=== PATIENT | male | born 1995 | race Caucasian/White ===

== ENCOUNTER 2021-10-10 20:30 | Inpatient (IN) | payer SELFPAY ==
[2021-10-10] MEDS ORDERED: Sodium Chloride 0.9% 10 ML Syringe FLUSH PRN (21:00)
[2021-10-10] MEDS ORDERED: Iopamidol 755 Mg/ML 75 ML Bottle IVPUSH ONE (21:40)
[2021-10-10] MEDS ORDERED: Sodium Chloride 0.9% 50 ML IV SCH (21:45)
--- NOTE | 2021-10-10 21:54 | EDM.PDOC ---
ED HPI GENERAL MEDICAL PROBLEM - General Chief Complaint: General Stated Complaint: ABD PAIN WITH LEFT SIDE BACK PAIN Time Seen by Provider: 10/10/21 21:34 Source of Information: Reports: Patient History Limitations: Reports: No Limitations - History of Present Illness INITIAL COMMENTS - FREE TEXT/NARRATIVE: Patient presents with abdominal pain. One week ago he started with fever, body aches, loss of taste/smell, cough, diarrhea, abdominal pain. Most symptoms are still lingering but the abdominal pain has gotten worse the last 3 days. It is in the central upper abdomen and constant at 3-4/10. His fever has been up to 103 and he uses Tylenol/Ibuprofen to control it. He isn't eating very well but is drinking lots of water. Middle Abdomen Pain Score (Numeric/FACES): 4 - Related Data Allergies Allergy/AdvReac Type Severity Reaction Status Date / Time seasonal Allergy Cannot Uncoded 10/10/21 21:25 Remember Home Meds: Home Meds Acetaminophen [Tylenol] 650 mg PO Q4HR PRN 10/10/21 [History] Ibuprofen 400 mg PO Q6H PRN 10/10/21 [History] ED ROS GENERAL - Review of Systems Review Of Systems: See Below Constitutional: Reports: Fever HEENT: Reports: Other (mild headache). Denies: Ear Pain, Throat Pain, Vision Change Respiratory: Reports: Cough (mild). Denies: Shortness of Breath Cardiovascular: Denies: Chest Pain, Lightheadedness, Syncope GI/Abdominal: Reports: Abdominal Pain, Diarrhea. Denies: Nausea, Vomiting : Denies: Dysuria, Flank Pain Musculoskeletal: Reports: Other (general aches) Skin: Denies: Cyanosis, Jaundice, Mottled, Pallor, Diaphoresis Neurological: Denies: Confusion, Dizziness, Seizure, Syncope, Trouble Speaking, Difficulty Walking Psychiatric: Denies: Agitation, Anxiety, Confusion ED EXAM, GENERAL - Physical Exam Exam: See Below Exam Limited By: No Limitations General Appearance: Alert, WD/WN, No Apparent Distress Eye Exam: Bilateral Eye: EOMI, Normal Inspection, PERRL Ears: Normal External Exam, Hearing Grossly Normal Nose: Normal Inspection, No Blood Throat/Mouth: Normal Inspection, Normal Lips, Normal Voice, No Airway Compromise Head: Atraumatic, Normocephalic Neck: Normal Inspection, Full Range of Motion Respiratory/Chest: No Respiratory Distress, Lungs Clear, Normal Breath Sounds, No Accessory Muscle Use Cardiovascular: Normal Peripheral Pulses, Regular Rate, Rhythm, No Edema, No Murmur Peripheral Pulses: 2+: Radial (L), Radial (R), Posterior Tibial (L), Posterior Tibial (R) GI/Abdominal: Normal Bowel Sounds, Soft, No Organomegaly, No Distention, No Abnormal Bruit, No Mass, Tender (mild, non-localized central, LUQ, RLQ). No: Guarding Back Exam: Normal Inspection, Full Range of Motion. No: CVA Tenderness (L), CVA Tenderness (R) Extremities: Normal Inspection, Normal Range of Motion, Non-Tender Neurological: Alert, Oriented, Normal Cognition, No Motor/Sensory Deficits Psychiatric: Normal Affect, Normal Mood Skin Exam: Warm, Dry, Intact, Normal Color, No Rash Course - Vital Signs Last Recorded V/S: Last Vital Signs Temp 96.2 F L 10/10/21 21:00 Pulse 118 H 10/10/21 21:00 Resp 24 H 10/10/21 21:00 BP 139/89 10/10/21 21:00 Pulse Ox 92 L 10/10/21 21:00 - Orders/Labs/Meds Orders: Active Orders 24 hr Category Date Time Status Peripheral IV Care [RC] . DIRECTED Care 10/10/21 21:00 Active Abdomen Pelvis w Cont [CT] Stat Exams 10/10/21 21:02 Ordered Sodium Chloride 0.9% [Normal Saline] 50 ml Med 10/10/21 21:45 Active IV ASDIRECTED Sodium Chloride 0.9% [Saline Flush] Med 10/10/21 21:00 Active 10 ml FLUSH Q8HR PRN Peripheral IV Insertion Adult [OM.PC] Routine Oth 10/10/21 21:00 Ordered Medication Orders Sodium Chloride (Normal Saline) 50 mls @ 200 mls/min IV ASDIRECTED SYDNI Last Admin: 10/10/21 22:03 Dose: 200 mls/min Documented by: JUAN ALBERTO Sodium Chloride (Sodium Chloride 0.9% 10 Ml Syringe) 10 ml FLUSH Q8HR PRN PRN Reason: keep vein open Last Admin: 10/10/21 21:10 Dose: 10 ml Documented by: MAGGY Labs: Laboratory Tests 10/10/21 10/10/21 10/10/21 Range/Units 21:10 21:10 21:16 WBC 7.21 (5.00-10.00) 10^3/uL RBC 5.88 (4.50-6.00) 10^6/uL Hgb 17.7 H (13.0-17.0) g/dL Hct 49.5 (40.0-52.0) % MCV 84.2 (82.0-92.0) fL MCH 30.1 (27.0-31.0) pg MCHC 35.8 (32.0-36.0) g/dL RDW 11.7 (11.5-14.5) % Plt Count 154 (150-400) 10^3/uL MPV 9.8 (7.4-10.4) fL Immature Gran % (Auto) 1.1 (0.0-5.0) % Neut % (Auto) 69.2 (50.0-70.0) % Lymph % (Auto) 24.7 (20.0-40.0) % [place] % (Auto) 4.9 (2.0-8.0) % Eos % (Auto) 0.0 L (1.0-3.0) % Baso % (Auto) 0.1 (0.0-1.0) % Neut # (Auto) 4.99 (2.50-7.00) 10^3/uL Lymph # (Auto) 1.78 (1.00-4.00) 10^3/uL [place] # (Auto) 0.35 (0.10-0.80) 10^3/uL Eos # (Auto) 0.00 L (0.10-0.30) 10^3/uL Baso # (Auto) 0.01 (0.00-0.10) 10^3/uL Immature Gran # (Auto) 0.08 (0.00-0.50) 10^3/uL Sodium 137 (136-145) mmol/L Potassium 3.6 (3.5-5.1) mmol/L Chloride 99 (98-107) mmol/L Carbon Dioxide 23.8 (21.0-32.0) mmol/L Anion Gap 17.8 H (5-15) mmol/L BUN 17 (7-18) mg/dL Creatinine 0.99 (0.51-1.17) mg/dL Est Cr Clr Drug Dosing TNP Estimated GFR (MDRD) > 60 mL/min Glucose 115 (70-140) mg/dL Calcium 8.1 L (8.7-10.3) mg/dL Total Bilirubin 0.9 (0.2-1.0) mg/dL AST 49 H (15-37) U/L ALT 77 H (14-63) U/L Alkaline Phosphatase 59 (46-116) U/L C-Reactive Protein 5.0 H (0.0-0.9) mg/dL Total Protein 7.2 (6.4-8.2) g/dL Albumin 3.36 L (3.40-5.00) g/dL Lipase 118 (73-393) U/L Specimen Type Urinvoid Urine Color Dark yellow H (YELLOW) Urine Appearance Clear (CLEAR) Urine pH 6.0 (5.0-9.0) Ur Specific [place] 1.025 (1.005-1.030) Urine Protein 100 H (NEGATIVE) mg/dL Urine Glucose (UA) Negative (NEGATIVE) mg/dL Urine Ketones Negative (NEGATIVE) mg/dL Urine Occult Blood Trace-intact H (NEGATIVE) Urine Nitrite Negative (NEGATIVE) Urine Bilirubin Negative (NEGATIVE) Urine Urobilinogen 0.2 (0.2-1.0) E.U./dL Ur Leukocyte Esterase Negative (NEGATIVE) Urine RBC 0-5 (0-5) /HPF Urine WBC 0-5 (0-5) /HPF Ur Epithelial Cells Rare /LPF Amorphous Sediment Rare (0/HPF) /HPF Urine Bacteria Not seen (NONE TO FEW) /HPF Urine Mucus Moderate H (NEGATIVE) /LPF Meds: Medications Generic Name Dose Route Start Last Admin Trade Name Freq PRN Reason Stop Dose Admin Sodium Chloride 50 mls @ 200 mls/min 10/10/21 21:45 10/10/21 22:03 Normal Saline IV 200 mls/min ASDIRECTED SYDNI Administration Sodium Chloride 10 ml 10/10/21 21:00 10/10/21 21:10 Sodium Chloride 0.9% 10 Ml Syringe FLUSH 10 ml Q8HR PRN Administration keep vein open Discontinued Medications Generic Name Dose Route Start Last Admin Trade Name Freq PRN Reason Stop Dose Admin Iopamidol 75 ml 10/10/21 21:40 10/10/21 22:03 Iopamidol 755 Mg/Ml 75 Ml Bottle IVPUSH 10/10/21 21:41 75 ml ONETIME ONE Administration - Re-Assessments/Exams Free Text/Narrative Re-Assessment/Exam: 10/10/21 22:59 CBC good. CRP 5.0, AST and ALT elevated. Lipase 118. UA shows proteinuria but otherwise okay. CT shows patchy bilat viral pneumonia, enlarged fatty infiltrated liver, enlarged spleen at 14 cm. Discuss[address] case with Dr. Stovall who wants to admit with IV fluids, Lovenox, Dexa methasone. He will reassess in the morning and consider other treatment options. Discussed findings and treatment plan with patient who agrees. Pain is 12/11 now. Stable at discharge from ER. Departure - Departure Time of Disposition: 22:58 Disposition: Admitted As Inpatient 65 Condition: Good Clinical Impression: Splenomegaly, Fatty liver, COVID-19, Viral pneumonia Abdominal pain Qualifiers: Abdominal location: epigastric Qualified Code(s): R10.13 - Epigastric pain - Discharge Information Referrals: Ashlie Angulo MD [Physician] - Forms: ED Department Discharge Sepsis Event Note (ED) - Focused Exam Vital Signs: Vital Signs Temp Pulse Resp BP Pulse Ox 10/10/21 21:00 96.2 F L 118 H 24 H 139/89 92 L - My Orders Last 24 Hours: My Active Orders 10/10/21 21:00 Peripheral IV Care [RC] . DIRECTED Sodium Chloride 0.9% [Saline Flush] 10 ml FLUSH Q8HR PRN Peripheral IV Insertion Adult [OM.PC] Routine 10/10/21 21:02 Abdomen Pelvis w Cont [CT] Stat 10/10/21 21:45 Sodium Chloride 0.9% [Normal Saline] 50 ml IV ASDIRECTED - Assessment/Plan Last 24 Hours: My Active Orders 10/10/21 21:00 Peripheral IV Care [RC] . DIRECTED Sodium Chloride 0.9% [Saline Flush] 10 ml FLUSH Q8HR PRN Peripheral IV Insertion Adult [OM.PC] Routine 10/10/21 21:02 Abdomen Pelvis w Cont [CT] Stat 10/10/21 21:45 Sodium Chloride 0.9% [Normal Saline] 50 ml IV ASDIRECTED
[2021-10-10 21:55] LABS: ANION GAP 17.8 mmol/L (5-15); CHLORIDE,CL 99 mmol/L (98-107); SODIUM,NA 137 mmol/L (136-145)
[2021-10-10] MEDS ORDERED: Sodium Chloride 0.9% 1,000 ML IV ONE (22:42)
[2021-10-10] MEDS ORDERED: Dexamethasone 4 MG/ML SDV IVPUSH ONE (22:42)
[2021-10-10] MEDS ORDERED: Enoxaparin 100 MG/1 ML Syringe SUBCUT ONE (22:43)
[2021-10-11] MEDS: Acetaminophen 325 MG Tab PO PRN ×3 (06:29→20:55)
--- NOTE | 2021-10-11 08:20 | CT ---
[id number] CT/CT Abdomen Pelvis W IV EXAM: CT Abdomen Pelvis W IV INDICATION: ABDOMINAL PAIN RADIATING TO BACK COMPARISON: None. DISCUSSION: Partially imaged bilateral gynecomastia. In the lung bases there are multifocal infiltrates most consistent with pneumonia. Hepatic steatosis. Mild to moderate splenomegaly. There are subtle areas of hypoenhancement scattered throughout the left kidney which are nonspecific but could be seen in the context of pyelonephritis, correlate with urinalysis and clinical findings. The gallbladder, pancreas, adrenal glands, right kidney, small bowel, large bowel, and the appendix are normal in appearance. No adenopathy, free air free fluid. Scattered degenerative changes in the spine and hips. The osseous structures are otherwise unremarkable. IMPRESSION: 1. Multifocal airspace opacities in the lung bases most consistent with infection. 2. Subtle hypoenhancement in the left kidney raising the possibility of pyelonephritis. Correlation with urinalysis and clinical signs and symptoms is suggested. 3. Hepatic steatosis and mild to moderate splenomegaly. Dick Barton MD 10/11/21 0819 Thank you for allowing us to participate in the care of your patient.
--- NOTE | 2021-10-11 10:51 | PCM.HP.2 ---
H&P History of Present Illness - General Date of Service: 10/11/21 Admit Problem/Dx: Admission Diagnosis/Problem Admission Diagnosis/Problem Splenomegaly Middle Abdomen Pain Score (Numeric/FACES): 2 - Related Data Allergies/Adverse Reactions: Allergies Allergy/AdvReac Type Severity Reaction Status Date / Time seasonal Allergy Cannot Uncoded 10/10/21 21:25 Remember Home Medications: Home Meds Acetaminophen [Tylenol] 650 mg PO Q4HR PRN 10/10/21 [History] Ibuprofen 400 mg PO Q6H PRN 10/10/21 [History] Past Medical History Other HEENT History: astigmatism. myopia Cardiovascular History: Reports: High Cholesterol Other Cardiovascular History: hypertriglyceridemia Respiratory History: Reports: Other (See Below) Other Respiratory History: COVID + Psychiatric History: Reports: None Endocrine/Metabolic History: Reports: Obesity/BMI 30+ - Infectious Disease History Infectious Disease History: Reports: Chicken Pox, Novel Coronavirus - Past Surgical History HEENT Surgical History: Reports: Tonsillectomy Social & Family History - Tobacco Use Tobacco Use Status *Q: Never Tobacco User Second Hand Smoke Exposure: No - Caffeine Use Caffeine Use: Reports: Coffee, Soda - Recreational Drug Use Recreational Drug Use: No H&P Review of Systems - Review of Systems: Review Of Systems: See Below General: Reports: Fever, Chills, Fatigue, Decreased Appetite HEENT: Reports: No Symptoms Pulmonary: Reports: Shortness of Breath, Cough. Denies: Wheezing Cardiovascular: Reports: Dyspnea on Exertion Gastrointestinal: Reports: Abdominal Pain, Diarrhea, Decreased Appetite. Denies: Nausea, Vomiting Genitourinary: Reports: No Symptoms Musculoskeletal: Reports: Other (generalized body aches) Skin: Reports: No Symptoms Psychiatric: Reports: No Symptoms Neurological: Reports: No Symptoms Hematologic/Lymphatic: Reports: No Symptoms Immunologic: Reports: No Symptoms Exam - Exam Exam: See Below - Vital Signs Vital Signs: Last Vital Signs Temp 98.4 F 10/11/21 10:43 Pulse 107 H 10/11/21 10:43 Resp 16 10/11/21 10:43 BP 140/80 10/11/21 10:43 Pulse Ox 93 L 10/11/21 10:43 Weight: 300 lb - Exam Quality Assessment: Supplemental Oxygen (2L), DVT Prophylaxis (lovenox BID) HEENT: Conjunctiva Clear, Mucosa Moist & [place] Neck: Supple, Trachea Midline Lungs: Decreased Breath Sounds. No: Crackles Cardiovascular: Regular Rhythm, Tachycardia. No: Systolic Murmur GI/Abdominal Exam: Normal Bowel Sounds, Soft, Non-Tender, No Distention (Male) Exam: Deferred Rectal (Males) Exam: Deferred Back Exam: Normal Inspection, Full Range of Motion Extremities: Normal Inspection, Normal Range of Motion, Non-Tender, No Pedal Edema, Normal Capillary Refill Peripheral Pulses: 2+: Dorsalis Pedis (L), Dorsalis Pedis (R) Skin: Warm, Dry, Intact Neurological: Normal Speech Neuro Extensive - Mental Status: Alert, Oriented x3, Normal Mood/Affect, Normal Cognition, Memory Intact Psychiatric: Alert, Normal Affect, Normal Mood - Patient Data Lab Results Last 24 hrs: Laboratory Results - last 24 hr 10/10/21 10/10/21 10/10/21 Range/Units 21:10 21:10 21:16 WBC 7.21 (5.00-10.00) 10^3/uL RBC 5.88 (4.50-6.00) 10^6/uL Hgb 17.7 H (13.0-17.0) g/dL Hct 49.5 (40.0-52.0) % MCV 84.2 (82.0-92.0) fL MCH 30.1 (27.0-31.0) pg MCHC 35.8 (32.0-36.0) g/dL RDW 11.7 (11.5-14.5) % Plt Count 154 (150-400) 10^3/uL MPV 9.8 (7.4-10.4) fL Immature Gran % (Auto) 1.1 (0.0-5.0) % Neut % (Auto) 69.2 (50.0-70.0) % Lymph % (Auto) 24.7 (20.0-40.0) % [place] % (Auto) 4.9 (2.0-8.0) % Eos % (Auto) 0.0 L (1.0-3.0) % Baso % (Auto) 0.1 (0.0-1.0) % Neut # (Auto) 4.99 (2.50-7.00) 10^3/uL Lymph # (Auto) 1.78 (1.00-4.00) 10^3/uL [place] # (Auto) 0.35 (0.10-0.80) 10^3/uL Eos # (Auto) 0.00 L (0.10-0.30) 10^3/uL Baso # (Auto) 0.01 (0.00-0.10) 10^3/uL Immature Gran # (Auto) 0.08 (0.00-0.50) 10^3/uL Sodium 137 (136-145) mmol/L Potassium 3.6 (3.5-5.1) mmol/L Chloride 99 (98-107) mmol/L Carbon Dioxide 23.8 (21.0-32.0) mmol/L Anion Gap 17.8 H (5-15) mmol/L BUN 17 (7-18) mg/dL Creatinine 0.99 (0.51-1.17) mg/dL Est Cr Clr Drug Dosing TNP Estimated GFR (MDRD) > 60 mL/min Glucose 115 (70-140) mg/dL Calcium 8.1 L (8.7-10.3) mg/dL Total Bilirubin 0.9 (0.2-1.0) mg/dL AST 49 H (15-37) U/L ALT 77 H (14-63) U/L Alkaline Phosphatase 59 (46-116) U/L C-Reactive Protein 5.0 H (0.0-0.9) mg/dL Total Protein 7.2 (6.4-8.2) g/dL Albumin 3.36 L (3.40-5.00) g/dL Lipase 118 (73-393) U/L Specimen Type Urinvoid Urine Color Dark yellow H (YELLOW) Urine Appearance Clear (CLEAR) Urine pH 6.0 (5.0-9.0) Ur Specific [place] 1.025 (1.005-1.030) Urine Protein 100 H (NEGATIVE) mg/dL Urine Glucose (UA) Negative (NEGATIVE) mg/dL Urine Ketones Negative (NEGATIVE) mg/dL Urine Occult Blood Trace-intact H (NEGATIVE) Urine Nitrite Negative (NEGATIVE) Urine Bilirubin Negative (NEGATIVE) Urine Urobilinogen 0.2 (0.2-1.0) E.U./dL Ur Leukocyte Esterase Negative (NEGATIVE) Urine RBC 0-5 (0-5) /HPF Urine WBC 0-5 (0-5) /HPF Ur Epithelial Cells Rare /LPF Amorphous Sediment Rare (0/HPF) /HPF Urine Bacteria Not seen (NONE TO FEW) /HPF Urine Mucus Moderate H (NEGATIVE) /LPF Result Diagrams: 10/10/21 21:10 10/10/21 21:10 Sepsis Event Note - Evaluation Sepsis Screening Result: No Definite Risk - Focused Exam Vital Signs: Vital Signs Temp Temp Pulse Resp BP Pulse Ox 10/11/21 10:43 98.4 F 107 H 16 140/80 93 L 10/11/21 06:59 99.8 F 10/11/21 06:29 99.7 F 10/11/21 06:24 93 L 10/11/21 06:18 99.7 F 85 20 138/49 L 89 L 10/10/21 23:23 99.2 F 55 L 22 H 139/62 93 L Problem List Initiated/Reviewed/Updated: Yes Orders Last 24hrs: Active Orders 24 hr Category Date Time Status Patient Status [ADT] Routine ADT 10/10/21 22:45 Active Patient Status [ADT] Routine ADT 10/10/21 23:50 Active Oxygen Therapy [RC] .PRN Care 10/10/21 23:50 Active Peripheral IV Care [RC] . DIRECTED Care 10/10/21 21:00 Active Up ad Rosalie [RC] DAILY Care 10/10/21 23:49 Active VTE/DVT Education [RC] DAILY Care 10/10/21 23:50 Active Vital Signs [RC] 03,07,11,15,19,23 Care 10/10/21 23:50 Active Regular Diet [DIET] Diet 10/11/21 Breakfast Active Acetaminophen [TylenoL] Med 10/11/21 06:19 Active 650 mg PO Q4H PRN Sodium Chloride 0.9% [Normal Saline] 50 ml Med 10/10/21 21:45 Active IV ASDIRECTED Sodium Chloride 0.9% [Saline Flush] Med 10/10/21 21:00 Active 10 ml FLUSH Q8HR PRN Peripheral IV Insertion Adult [OM.PC] Routine Oth 10/10/21 21:00 Ordered Resuscitation Status Routine Resus Stat 10/10/21 23:49 Ordered Medication Orders Acetaminophen (Acetaminophen 325 Mg Tab) 650 mg PO Q4H PRN PRN Reason: Fever Last Admin: 10/11/21 06:29 Dose: 650 mg Documented by: MYKE Sodium Chloride (Normal Saline) 50 mls @ 200 mls/min IV ASDIRECTED SYDNI Last Admin: 10/10/21 22:03 Dose: 200 mls/min Documented by: JUAN ALBERTO Sodium Chloride (Sodium Chloride 0.9% 10 Ml Syringe) 10 ml FLUSH Q8HR PRN PRN Reason: keep vein open Last Admin: 10/10/21 21:10 Dose: 10 ml Documented by: MAGGY Assessment/Plan Comment:: HPI summary: Parish is a 26yM patient who presented to the ER last night for c/o abdominal pain which has increased for the past 3 days. Patient tested [facility] it[facility] experiencing onset of fever, body aches, loss of taste and smell, cough, diarrhea, decreased appetite and abdominal pain for about the past week. Patient was offered the monoclonal antibody treatment on 10/09/[address] Munguia and he indicated that he would notify the clinic if this would be desired. Patient is unvaccinated for COVID. PMH significant for morbid obesity and mixed HLD with no lipid panel since 2018 on file. Of note, patient has family history of sudden cardiac . ED course: Patient c/o constant central abdominal pain rated 3-4/10. WBC 7.21, Hgb 17.7, Plt 154. Na 137, K 3.6, BUN 17, Creatinine 0.99, AST 49, ALT 77, CRP 5.0. UA negative for infection, protein > 100. Abdominal CT indicated multifocal opacities suggestive of pneumonia, subtle hypoenhancement of the L kidney which would raise possible concern for pyelonephritis which is recommended to be correlated with UA and s/s. UA clear for infection and no CVA tenderness per ER exam, no leukocytosis or neutrophilia. Patient admitted to inpatient status for treatment of COVID, COVID pneumonia per Dr Stovall. Hospital course: 10/11/21: Patient reports he is SOB this morning, denies palpitations though tachycardic. Reports abdominal pain improved, continues with diarrhea, no nausea/vomiting. Lung sounds diminished, no crackles, overt rhonchi or wheeze. HR 107 this morning. No d-dimer was obtained in ER, will obtain and CTA if elevated to R/O PE. No CXR in ER, however base of lungs per CT abdomen indicated likely COVID pneumonia. Will repeat labs this morning and add additional COVID labs: CBC, CMP, CRP, Mg, PT/INR, PTT. Will plan to start remdesevir 200mg IV x 1 dose, followed by 100mg IV x 4 days if labs amenable. Hospitalization problems and plan: # COVID -19 # COVID Pneumonia # Splenomegaly # Elevated CRP, 5.0 - Supplemental oxygen to maintain O2 sat > 92%; On 2L this morning - Will start remdesevir today once labs resulted including PT/INR and PTT per [facility] protocols - Dexamethasone 6mg PO daily - Lovenox 40mg subq BID due to BMI > 40 - Adjunctive therapy of vitamin C, vitamin D and Zinc - Repeat labs CBC, CMP, CRP, Mg Chronic, stable conditions: # Mixed hyperlipidemia - last lipid panel 02/17/18: total cholesterol 239, Trigs 559, LDL unavailable due to elevated trigs # Hepatic steatosis per abdominal CT in ER # Morbid obesity, BMI 44.3 Hospitalization details: # FEN: IVF NS @ 100ml/hr, electrolytes stable, regular diet # PPX: Lovenox 40mg subq BID, pantoprazole 20mg PO daily # Code status: FULL CODE # Emergency contact: Demetrio Rendony, # Disposition: Will maintain inpatient status for treatment of COVID-19, COVID pneumonia, requiring supplemental oxygen therapy. Discussed 5 day course of remdesevir with patient. - Repeat lipid panel as outpatient
[2021-10-11] MEDS ORDERED: Dexamethasone 4 MG Tab PO SCH (11:02)
[2021-10-11] MEDS ORDERED: Zinc (Zinc Gluconate) 50 MG Tab PO SCH (11:15)
[2021-10-11] MEDS ORDERED: Cholecalciferol (Vitamin D3) 25 MCG Tab PO SCH (11:15)
[2021-10-11] MEDS ORDERED: Enoxaparin 40 MG/0.4 ML Syringe SUBCUT SCH ×2 (11:15→21:00)
[2021-10-11] MEDS: Ascorbic Acid 500 MG Tab PO SCH ×2 (12:50→20:55)
[2021-10-11] MEDS: Sodium Chloride 0.9% 1,000 ML IV SCH (12:52)
[2021-10-11 12:59] LABS: ANION GAP 16.7 mmol/L (5-15); CHLORIDE,CL 101 mmol/L (98-107); SODIUM,NA 137 mmol/L (136-145)
[2021-10-11 13:02] LABS: PTT,PARTIAL THROMBOPLSTIN TIME 33.7 SEC (22.8-31.4)
[2021-10-11] MEDS ORDERED: Iopamidol 755 Mg/ML 100 ML Bottle IV ONE (13:28)
[2021-10-11] MEDS ORDERED: REMDESIVIR 200 MG in Sodium Chloride 0.9% 250 ML IV ONE (13:30)
[2021-10-11] MEDS ORDERED: Sodium Chloride 0.9% 100 ML IV SCH (13:30)
--- NOTE | 2021-10-11 14:26 | CT ---
[id number] CT/CTA Chest Exam: CTA Chest Clinical Data: ELEVATED D-DIMER. SHORTNESS OF BREATH. TACHYCARDIA COMPARISON: NO PREVIOUS SIMILAR EXAM IS AVAILABLE FINDINGS: There is extensive bilateral pneumonia. There is moderate intermittent again seen There are no pulmonary emboli There is mild mediastinal adenopathy. IMPRESSION: BILATERAL PNEUMONIA WITH MEDIASTINAL ADENOPATHY NO PULMONARY EMBOLI MODERATE SPLENOMEGALY Aubrey Molina MD 10/11/21 2318 Thank you for allowing us to participate in the care of your patient.
[2021-10-12] MEDS: Sodium Chloride 0.9% 1,000 ML IV SCH (00:47)
[2021-10-12] MEDS: Acetaminophen 325 MG Tab PO PRN (05:10)
[2021-10-12 06:29] LABS: PCO2 ARTERIAL,POC 34 mmHg (35-48)
[2021-10-12] MEDS ORDERED: Pantoprazole 20 MG Tab, Delayed Release PO SCH (07:30)
--- NOTE | 2021-10-12 07:32 | DISCH ---
HOSPITAL COURSE: The patient is a 26-year-old male patient who presented to the emergency room on because of increased abdominal pain for last 3 days. The patient had tested positive for COVID on 10/09/2021 at [facility] after he experienced fever, body aches, loss of taste and smell, cough, and diarrhea. He had decreased appetite and abdominal pain about the last 1 week. The patient was offered monoclonal antibody on 10/09/2021 and the patient apparently refused to take this. The patient is unvaccinated for COVID. PAST MEDICAL HISTORY: Significantly positive for morbid obesity and mixed hyperlipidemia, but no lipids have been done since 2018. FAMILY HISTORY: Significant for sudden cardiac . After being admitted to the emergency room, he was further tested positive for COVID and he was admitted to the hospital. A CTA of the chest reveals no pulmonary emboli. Showed bilateral extensive pneumonia consistent with COVID pneumonia. He was started on anticoagulants and remdesivir was started. He also started on dexamethasone steroids. He was given oxygen initially at low dose. On 10/12/2021, the nurse called me to state that his oxygen requirements have been steadily increasing. Currently, he is receiving 10 L per nasal high- flow mask and his saturation is 90%. PHYSICAL EXAM ON DISCHARGE: GENERAL: The patient is alert. VITAL SIGNS: Stable. His blood pressure was 123/67, respiratory rate was 28, oxygen saturation was 90%, and temperature was 100.2. I examined the patient this morning at about 6:15 a.m. He appeared to be in some mild distress. ABGs and chest x-ray were ordered. Because of his increased requirements of oxygen and inability at our hospital to place him on continued ventilator management, etc., I discussed these options with the patient and called [facility] Emergency Room accepting physician and requested a transfer of this patient to [facility]. The physician at [facility] accepted this patient in transfer. He will be sent via ground ambulance. /[id number]/MODL
--- NOTE | 2021-10-12 07:41 | CR ---
[id number] RAD/RAD Chest PA or AP 1V EXAM: SINGLE VIEW CHEST. INDICATION: COVID COMPARISON: NO PREVIOUS SIMILAR EXAM IS AVAILABLE FINDINGS: Extensive bilateral infiltrates are seen The cardiac silhouette is normal IMPRESSION: EXTENSIVE BILATERAL PNEUMONIA Aubrey Molina MD 10/12/21 [id number] Thank you for allowing us to participate in the care of your patient.
[2021-10-12] MEDS ORDERED: REMDESIVIR 100 MG in Sodium Chloride 0.9% 250 ML IV SCH (13:30)
== END 2021-10-12 07:15 | DRG 177 ==
LOC: KA.ED 20:30 → SUPCPDRO 20:30 → KA.MS 22:45 → UNDOADMIN 23:06 → KA.MS 23:06
PROVIDERS: ADMIT Family Medicine; ATTEND Family Medicine
PROC: 3E0333Z Introduction of Anti-inflammatory into Peripheral Vein, Percutaneous Approach (ICD-10-PCS; principal; 2021-10-10)
PROC: XW033E5 Introduction of Remdesivir Anti-infective into Peripheral Vein, Percutaneous Approach, New Technology Group 5 (ICD-10-PCS; 2021-10-11)
PROC: 3E0DX3Z Introduction of Anti-inflammatory into Mouth and Pharynx, External Approach (ICD-10-PCS; 2021-10-11)
DX: U07.1 COVID-19 (principal); J12.82 Pneumonia due to coronavirus disease 2019; Z68.41 Body mass index [BMI] 40.0-44.9, adult; E66.01 Morbid (severe) obesity due to excess calories; E78.2 Mixed hyperlipidemia; E78.00 Pure hypercholesterolemia, unspecified; E78.1 Pure hyperglyceridemia; R16.1 Splenomegaly, not elsewhere classified; K76.0 Fatty (change of) liver, not elsewhere classified; Z88.8 Allergy status to other drugs, medicaments and biological substances
CPT/HCPCS: 36415; 36600; 71045; 71275; 74177; 80053; 81001; 82803; 82977; 83690; 83735; 85025; 85379; 85610; 85730; 86140; 96372; 96374; 99284; 99285-25; A9270-GY; J1100; J1650; J7030; J7050; J8540; Q9967

== ENCOUNTER 2023-03-08 17:23 | Emergency (ER) | payer BC ==
[2023-03-08] MEDS ORDERED: Lidocaine 2% 5 ML SDV INJECT ONE (17:32)
[2023-03-08] MEDS ORDERED: Cephalexin 250 MG Cap PO ONE (18:17)
== END 2023-03-08 18:25 | disposition home or self-care (01) ==
LOC: KA.ED 17:23
DX: S61.212A Laceration without foreign body of right middle finger without damage to nail, initial encounter (principal); E66.9 Obesity, unspecified; Z68.41 Body mass index [BMI] 40.0-44.9, adult; Z86.16 Personal history of COVID-19; W26.8XXA Contact with other sharp object(s), not elsewhere classified, initial encounter
CPT/HCPCS: 12001; 99282; A9270; 99283; J3490